=== PATIENT | female | born 2000 | race African-American/Black ===

== ENCOUNTER 2024-06-12 08:02 | Emergency (ER) | payer MEDICAID ==
[~2024-06-12] VITALS: Ht 167.6 cm; Wt 59.0 kg
[2024-06-12] MEDS ORDERED: TraZODone HCl 100 MG Tab PO ONE (09:00)
[2024-06-12] MEDS ORDERED: ARIPiprazole 10 MG Tab PO ONE (09:00)
[2024-06-12] MEDS ORDERED: TraZODone HCl 50 MG Tab PO ONE (09:15)
[2024-06-12] MEDS ORDERED: ABILIFY MYCITE15 M2 PO (10:06)
[2024-06-12] MEDS ORDERED: ESCI10 PO (10:06)
[2024-06-12] MEDS ORDERED: TRAZ50 PO (10:06)
== END 2024-06-12 10:13 | disposition home or self-care (01) ==
LOC: ER 08:02
DX: F20.9 Schizophrenia, unspecified (principal)
CPT/HCPCS: 99284; A9270